=== PATIENT | female | born 1960 | race Two or more races ===

== ENCOUNTER 2018-05-30 14:43 | Inpatient (IN) | payer MEDICAID, OTHER ==
[~2018-05-30] VITALS: Ht 170.2 cm; Wt 113.8 kg
[~2018-05-30 14:43] MED LIST: CEPH-91 OR
[2018-05-30 15:28] LABS: Eosinophils # (auto) 0.1 uL; Hemoglobin 12.1 g/dL (12.2-16.2); Lymphocytes # (auto) 1.1 uL; Monocytes # (auto) 0.9 uL; Neutrophils # (auto) 5.8 uL; Nucleated Red Blood Cells % 0.1 %
[2018-05-30 15:29] LABS: Basophils # (auto) 0.1 uL; Basophils % (auto) 0.9 % (0.0-2.0); Eosinophils % (auto) 1.3 % (0.0-7.0); Lymphocytes % (auto) 13.4 % (10.0-50.0); Mean Corpuscular Hemoglobin 35.9 pg (28.0-32.0); Mean Corpuscular Hgb Conc. 32.8 g/dL (32.0-36.0); Mean Corpuscular Volume 109.5 fL (80.0-100.0); Monocytes % (auto) 11.3 % (0.0-12.0); Neutrophils % (auto) 73.1 % (37.0-80.0); Platelet Count (auto) 68 10^3/uL (140-450); Red Blood Cells 3.38 10^6/uL (4.0-5.20)
[2018-05-30 15:31] LABS: INR 1.82 (0.9-1.15); Partial Thromboplastin Time 35.8 sec (23.78-33.04); Prothrombin Time 18.8 sec (9.27-12.13)
[2018-05-30 15:37] LABS: Albumin 1.8 g/dL (3.4-5.0); BUN/Creatinine Ratio 15.8; Bilirubin, Total 9.6 mg/dL (0.2-1.0); Potassium 5.4 mmol/L (3.5-5.1); Total Protein 6.7 g/dL (6.4-8.2)
[2018-05-30 15:50] LABS: Blood Alcohol < 3.0 mg/dL (0-5); Magnesium 2.2 mg/dL (1.6-2.6)
[2018-05-30] MEDS ORDERED: THIAMINE 100mg/ml INJ (200mg/2ml VIAL) IV ONE (16:30)
[2018-05-30] MEDS ORDERED: LEVOFLOXACIN 500MG 100 ML IV ONE (16:30)
[2018-05-30] MEDS ORDERED: FOLIC ACID 1 MG in D5W 5% 50 ML IV ONE (16:30)
[2018-05-30] MEDS ORDERED: LACTULOSE 20Gm/30ML SOLN ONE (16:45)
[2018-05-30] MEDS: LACTULOSE 20Gm/30ML SOLN PO SCH ×2 (16:56→22:11)
[2018-05-30] MEDS ORDERED: PANTOPRAZOLE 40 MG/10 ML VIAL IV ONE (17:00)
[2018-05-30 18:50] LABS: Urine Bacteria NONE SEEN /hpf (None Seen); Urine Blood Negative /uL (Negative); Urine Hyaline Cast MANY /lpf (0 - 2); Urine Mucus FEW (None Seen); Urine Specific Gravity 1.029 (1.001-1.035); Urine WBC 2 /hpf (0 - 5)
[2018-05-30 21:00] VITALS: BP 119/100
[2018-05-30 22:00] VITALS: BP 119/104
[2018-05-31] VITALS (7 sets, daily range): BP systolic 113–145; BP diastolic 60–90
[2018-05-31] MEDS: LACTULOSE 20Gm/30ML SOLN PO SCH ×4 (02:10→21:17)
[2018-05-31 06:36] LABS: Lymphocytes # (auto) 0.8 uL; Monocytes # (auto) 0.7 uL; Nucleated Red Blood Cells % 0.1 %
[2018-05-31 06:39] LABS: Basophils # (auto) 0.1 uL; Basophils % (auto) 0.8 % (0.0-2.0); Eosinophils # (auto) 0.1 uL; Hematocrit 32.2 % (36.0-46.0); Lymphocytes % (auto) 12.2 % (10.0-50.0); Mean Corpuscular Hemoglobin 36.5 pg (28.0-32.0); Mean Corpuscular Volume 107.2 fL (80.0-100.0); Neutrophils # (auto) 4.9 uL; Platelet Count (auto) 65 10^3/uL (140-450); Red Blood Cells 3.01 10^6/uL (4.0-5.20); Red Cell Distribution Width 15.3 % (11.8-14.3); White Blood Cell 6.6 10^3/uL (4.4-10.8)
[2018-05-31 07:01] LABS: Albumin 1.8 g/dL (3.4-5.0); BUN/Creatinine Ratio 22.1; Bilirubin, Total 9.5 mg/dL (0.2-1.0); Calcium 8.2 mg/dL (8.5-10.1); Potassium 4.8 mmol/L (3.5-5.1); Total Protein 6.1 g/dL (6.4-8.2)
[2018-05-31] MEDS: THIAMINE 100mg/ml INJ (200mg/2ml VIAL) IV SCH (10:07)
[2018-05-31] MEDS: LEVOFLOXACIN 500MG 100 ML IV SCH (10:07)
[2018-05-31] MEDS: PANTOPRAZOLE 40 MG/10 ML VIAL IV SCH (10:07)
[2018-05-31] MEDS: FOLIC ACID 1 MG in D5W 5% 50 ML IV SCH (10:20)
[2018-05-31] MEDS: SPIRONOLACTONE 25 MG TAB PO SCH ×2 (12:00→18:03)
[2018-05-31] MEDS: FUROSEMIDE 40 MG TAB PO SCH ×2 (12:01→18:03)
[2018-05-31] MEDS: MORPHINE SULFATE 4 MG/ML SYR/VIAL IV PRN (21:17)
[2018-05-31] MEDS: FAMOTIDINE (10MG/ML) 2ML VL IV SCH (21:17)
[2018-06-01] MEDS: MORPHINE SULFATE 4 MG/ML SYR/VIAL IV PRN ×4 (02:44→21:22)
[2018-06-01 05:00] VITALS: BP 141/97
[2018-06-01] MEDS: SPIRONOLACTONE 25 MG TAB PO SCH ×2 (06:45→18:00)
[2018-06-01] MEDS: FUROSEMIDE 40 MG TAB PO SCH ×2 (06:45→18:00)
[2018-06-01 09:00] VITALS: BP_SYST 124; BP_SYST 129; BP_DIAS 63; BP_DIAS 68
[2018-06-01] MEDS ORDERED: SPIRONOLACTONE 25 MG TAB PO ONE (09:30)
[2018-06-01] MEDS: FAMOTIDINE (10MG/ML) 2ML VL IV SCH ×2 (10:00→21:21)
[2018-06-01] MEDS: PANTOPRAZOLE 40 MG/10 ML VIAL IV SCH (10:00)
[2018-06-01] MEDS: FOLIC ACID 1 MG in D5W 5% 50 ML IV SCH (10:00)
[2018-06-01] MEDS: THIAMINE 100mg/ml INJ (200mg/2ml VIAL) IV SCH (10:00)
[2018-06-01] MEDS: LACTULOSE 20Gm/30ML SOLN PO SCH ×2 (10:00→21:21)
[2018-06-01] MEDS: LEVOFLOXACIN 500MG 100 ML IV SCH (10:00)
[2018-06-01] MEDS: Ensure Enlive Strawberry 8oz Bottle PO SCH ×2 (12:00→18:01)
[2018-06-01 16:44] VITALS: BP 107/62
[2018-06-01 20:00] VITALS: BP 110/62
[2018-06-01 22:00] VITALS: BP 110/62
[2018-06-02 05:00] VITALS: BP 110/72
[2018-06-02] MEDS: FUROSEMIDE 40 MG TAB PO SCH ×2 (05:45→18:09)
[2018-06-02] MEDS: SPIRONOLACTONE 25 MG TAB PO SCH ×2 (05:46→18:09)
[2018-06-02] MEDS: MORPHINE SULFATE 4 MG/ML SYR/VIAL IV PRN ×3 (05:54→21:35)
[2018-06-02 07:36] LABS: Basophils # (auto) 0.1 uL; Eosinophils # (auto) 0.1 uL; Monocytes # (auto) 0.7 uL; Monocytes % (auto) 9.4 % (0.0-12.0); Neutrophils # (auto) 5.4 uL; Nucleated Red Blood Cells % 0.1 %; White Blood Cell 7.4 10^3/uL (4.4-10.8)
[2018-06-02 07:38] LABS: Basophils % (auto) 0.8 % (0.0-2.0); Eosinophils % (auto) 1.8 % (0.0-7.0); Hematocrit 32.2 % (36.0-46.0); Hemoglobin 10.7 g/dL (12.2-16.2); Lymphocytes # (auto) 1.1 uL; Lymphocytes % (auto) 14.9 % (10.0-50.0); Mean Corpuscular Hemoglobin 35.5 pg (28.0-32.0); Mean Corpuscular Hgb Conc. 33.3 g/dL (32.0-36.0); Mean Corpuscular Volume 106.4 fL (80.0-100.0); Neutrophils % (auto) 73.1 % (37.0-80.0); Platelet Count (auto) 57 10^3/uL (140-450); Red Blood Cells 3.03 10^6/uL (4.0-5.20)
[2018-06-02 07:51] LABS: BUN/Creatinine Ratio 21.9; Calcium 7.5 mg/dL (8.5-10.1); Potassium 4.1 mmol/L (3.5-5.1)
[2018-06-02] MEDS: Ensure Enlive Strawberry 8oz Bottle PO SCH ×3 (08:00→18:09)
[2018-06-02 08:41] VITALS: BP 120/71
[2018-06-02] MEDS: FAMOTIDINE (10MG/ML) 2ML VL IV SCH ×2 (10:00→21:35)
[2018-06-02] MEDS: THIAMINE 100mg/ml INJ (200mg/2ml VIAL) IV SCH (10:00)
[2018-06-02] MEDS: PANTOPRAZOLE 40 MG/10 ML VIAL IV SCH (10:00)
[2018-06-02] MEDS: LACTULOSE 20Gm/30ML SOLN PO SCH ×2 (10:00→21:34)
[2018-06-02] MEDS: LEVOFLOXACIN 500MG 100 ML IV SCH (10:00)
[2018-06-02] MEDS: FOLIC ACID 1 MG in D5W 5% 50 ML IV SCH (10:00)
[2018-06-02 10:36] LABS: Hepatitis A Ab IgM Negative
[2018-06-02 10:37] LABS: Hepatitis B Core IgM Negative
[2018-06-02 10:38] LABS: Hepatitis B Surface Antigen Negative (Negative)
[2018-06-02 10:40] LABS: Hepatitis C Antibody Positive (Negative)
[2018-06-02 11:53] VITALS: BP 116/76
[2018-06-02 16:24] VITALS: BP 110/76
[2018-06-02 20:00] VITALS: BP 104/65
[2018-06-02 22:00] VITALS: BP 104/65
[2018-06-03 05:00] VITALS: BP 111/63
[2018-06-03] MEDS: SPIRONOLACTONE 25 MG TAB PO SCH ×2 (05:52→18:25)
[2018-06-03] MEDS: FUROSEMIDE 40 MG TAB PO SCH ×2 (05:53→18:26)
[2018-06-03] MEDS: MORPHINE SULFATE 4 MG/ML SYR/VIAL IV PRN ×3 (06:50→18:25)
[2018-06-03] MEDS: Ensure Enlive Strawberry 8oz Bottle PO SCH ×3 (08:00→17:38)
[2018-06-03 08:08] LABS: BUN/Creatinine Ratio 22.5; Calcium 7.6 mg/dL (8.5-10.1); Potassium 3.9 mmol/L (3.5-5.1)
[2018-06-03 08:51] VITALS: BP 129/65
[2018-06-03] MEDS: FOLIC ACID 1 MG in D5W 5% 50 ML IV SCH (10:00)
[2018-06-03] MEDS: LEVOFLOXACIN 500MG 100 ML IV SCH (10:00)
[2018-06-03] MEDS: THIAMINE 100mg/ml INJ (200mg/2ml VIAL) IV SCH (10:00)
[2018-06-03] MEDS: FAMOTIDINE (10MG/ML) 2ML VL IV SCH ×2 (10:00→22:03)
[2018-06-03] MEDS: LACTULOSE 20Gm/30ML SOLN PO SCH ×2 (10:00→22:03)
[2018-06-03] MEDS: PANTOPRAZOLE 40 MG/10 ML VIAL IV SCH (10:00)
[2018-06-03 11:27] VITALS: BP 112/64
[2018-06-03 16:49] VITALS: BP 104/68
[2018-06-03] MEDS: LORazepam 0.5 MG TAB PO PRN (17:55)
[2018-06-03 20:20] LABS: BUN/Creatinine Ratio 16.7; Calcium 7.3 mg/dL (8.5-10.1); Potassium 3.8 mmol/L (3.5-5.1)
[2018-06-03 22:00] VITALS: BP 104/64
[2018-06-03] MEDS: Pro-Stat SF 30ml Vanilla PO SCH (22:00)
[2018-06-04] MEDS: MORPHINE SULFATE 4 MG/ML SYR/VIAL IV PRN ×4 (01:15→22:22)
[2018-06-04 05:00] VITALS: BP 99/43
[2018-06-04] MEDS: SPIRONOLACTONE 25 MG TAB PO SCH ×2 (06:27→18:24)
[2018-06-04] MEDS: FUROSEMIDE 40 MG TAB PO SCH ×2 (06:27→18:26)
[2018-06-04 09:00] VITALS: BP 115/78
[2018-06-04] MEDS: PANTOPRAZOLE 40 MG/10 ML VIAL IV SCH (10:00)
[2018-06-04] MEDS: LACTULOSE 20Gm/30ML SOLN PO SCH ×2 (10:00→22:21)
[2018-06-04] MEDS: THIAMINE 100mg/ml INJ (200mg/2ml VIAL) IV SCH (10:01)
[2018-06-04] MEDS: Ensure Enlive Strawberry 8oz Bottle PO SCH ×3 (10:01→18:25)
[2018-06-04] MEDS: FOLIC ACID 1 MG in D5W 5% 50 ML IV SCH (10:02)
[2018-06-04] MEDS: LEVOFLOXACIN 500MG 100 ML IV SCH (10:02)
[2018-06-04] MEDS: Pro-Stat SF 30ml Vanilla PO SCH ×2 (10:03→22:00)
[2018-06-04] MEDS: FAMOTIDINE (10MG/ML) 2ML VL IV SCH ×2 (10:20→22:22)
[2018-06-04 13:00] VITALS: BP 111/61
[2018-06-04 17:00] VITALS: BP 106/68
[2018-06-04 22:00] VITALS: BP 113/63
[2018-06-05 05:00] VITALS: BP 127/67
[2018-06-05] MEDS: SPIRONOLACTONE 25 MG TAB PO SCH ×2 (05:53→18:00)
[2018-06-05] MEDS: FUROSEMIDE 40 MG TAB PO SCH ×2 (05:53→18:00)
[2018-06-05] MEDS: MORPHINE SULFATE 4 MG/ML SYR/VIAL IV PRN ×3 (06:00→18:46)
[2018-06-05 06:59] LABS: Basophils # (auto) 0 uL; Basophils % (auto) 0.6 % (0.0-2.0); Eosinophils # (auto) 0.1 uL; Eosinophils % (auto) 1.6 % (0.0-7.0); Hematocrit 30.4 % (36.0-46.0); Hemoglobin 10.4 g/dL (12.2-16.2); Lymphocytes # (auto) 0.7 uL; Lymphocytes % (auto) 10.7 % (10.0-50.0); Mean Corpuscular Hemoglobin 36.5 pg (28.0-32.0); Mean Corpuscular Volume 107.3 fL (80.0-100.0); Monocytes # (auto) 1.1 uL; Neutrophils # (auto) 4.3 uL; Neutrophils % (auto) 70.1 % (37.0-80.0); Nucleated Red Blood Cells % 0.1 %; Platelet Count (auto) 49 10^3/uL (140-450); Potassium 3.7 mmol/L (3.5-5.1); Red Blood Cells 2.84 10^6/uL (4.0-5.20); Red Cell Distribution Width 15.7 % (11.8-14.3); White Blood Cell 6.2 10^3/uL (4.4-10.8)
[2018-06-05 07:04] LABS: Albumin 1.6 g/dL (3.4-5.0); BUN/Creatinine Ratio 17.3; Calcium 7.4 mg/dL (8.5-10.1)
[2018-06-05 07:07] LABS: Bilirubin, Total 7.4 mg/dL (0.2-1.0)
[2018-06-05 09:00] VITALS: BP 118/67
[2018-06-05] MEDS: THIAMINE 100mg/ml INJ (200mg/2ml VIAL) IV SCH (10:24)
[2018-06-05] MEDS: FOLIC ACID 1 MG in D5W 5% 50 ML IV SCH (10:24)
[2018-06-05] MEDS: FAMOTIDINE (10MG/ML) 2ML VL IV SCH ×2 (10:24→21:38)
[2018-06-05] MEDS: PANTOPRAZOLE 40 MG/10 ML VIAL IV SCH (10:24)
[2018-06-05] MEDS: LEVOFLOXACIN 500MG 100 ML IV SCH (10:24)
[2018-06-05] MEDS: LACTULOSE 20Gm/30ML SOLN PO SCH ×2 (10:24→21:39)
[2018-06-05] MEDS: Ensure Enlive Strawberry 8oz Bottle PO SCH ×3 (10:25→18:00)
[2018-06-05] MEDS: Pro-Stat SF 30ml Vanilla PO SCH ×2 (10:25→22:00)
[2018-06-05 13:35] VITALS: BP 101/75
[2018-06-05 17:33] VITALS: BP 106/69
[2018-06-05 22:00] VITALS: BP 114/64
[2018-06-06] VITALS (8 sets, daily range): BP systolic 101–115; BP diastolic 53–66
[2018-06-06] MEDS: MORPHINE SULFATE 4 MG/ML SYR/VIAL IV PRN ×4 (00:51→18:44)
[2018-06-06] MEDS: FUROSEMIDE 40 MG TAB PO SCH ×2 (06:17→17:51)
[2018-06-06] MEDS: SPIRONOLACTONE 25 MG TAB PO SCH ×2 (06:17→17:50)
[2018-06-06 06:34] LABS: Basophils # (auto) 0 uL; Basophils % (auto) 0.5 % (0.0-2.0); Eosinophils # (auto) 0.1 uL; Eosinophils % (auto) 1.9 % (0.0-7.0); Hemoglobin 10.1 g/dL (12.2-16.2); Lymphocytes # (auto) 0.8 uL; Nucleated Red Blood Cells % 0.1 %; Red Cell Distribution Width 15.7 % (11.8-14.3)
[2018-06-06 06:38] LABS: Lymphocytes % (auto) 12.1 % (10.0-50.0); Mean Corpuscular Hgb Conc. 34.8 g/dL (32.0-36.0); Mean Corpuscular Volume 106.4 fL (80.0-100.0); Monocytes % (auto) 15.2 % (0.0-12.0); Neutrophils # (auto) 4.8 uL; Neutrophils % (auto) 70.3 % (37.0-80.0); Platelet Count (auto) 45 10^3/uL (140-450); Red Blood Cells 2.73 10^6/uL (4.0-5.20); White Blood Cell 6.8 10^3/uL (4.4-10.8)
[2018-06-06 06:51] LABS: BUN/Creatinine Ratio 17.7; Calcium 7.1 mg/dL (8.5-10.1); Potassium 3.3 mmol/L (3.5-5.1)
[2018-06-06] MEDS: LACTULOSE 20Gm/30ML SOLN PO SCH ×2 (09:57→23:23)
[2018-06-06] MEDS: PANTOPRAZOLE 40 MG/10 ML VIAL IV SCH (09:57)
[2018-06-06] MEDS: THIAMINE 100mg/ml INJ (200mg/2ml VIAL) IV SCH (09:57)
[2018-06-06] MEDS: FOLIC ACID 1 MG in D5W 5% 50 ML IV SCH (09:57)
[2018-06-06] MEDS: LEVOFLOXACIN 500MG 100 ML IV SCH (09:57)
[2018-06-06] MEDS: FAMOTIDINE (10MG/ML) 2ML VL IV SCH ×2 (09:57→23:24)
[2018-06-06] MEDS: Ensure Enlive Strawberry 8oz Bottle PO SCH ×3 (09:58→17:50)
[2018-06-06] MEDS: Pro-Stat SF 30ml Vanilla PO SCH ×2 (11:55→22:08)
[2018-06-06] MEDS ORDERED: ALBUMIN 25% 100 ML IV ONE (13:00)
[2018-06-06] MEDS ORDERED: POTASSIUM CHL 20 Meq TABLET PO ONE (13:00)
[2018-06-06] MEDS: PROPRANOLOL HCL 20 MG TAB PO SCH (23:24)
[2018-06-07] MEDS: MORPHINE SULFATE 4 MG/ML SYR/VIAL IV PRN (00:47)
[2018-06-07 05:37] VITALS: BP 101/66
[2018-06-07] MEDS: FUROSEMIDE 40 MG TAB PO SCH ×2 (06:41→18:00)
[2018-06-07] MEDS: SPIRONOLACTONE 25 MG TAB PO SCH ×2 (06:42→20:17)
[2018-06-07 07:06] LABS: White Blood Cell 7.1 10^3/uL (4.4-10.8)
[2018-06-07 07:18] LABS: Hematocrit 29.5 % (36.0-46.0); Hemoglobin 10.2 g/dL (12.2-16.2); Mean Corpuscular Hemoglobin 36.8 pg (28.0-32.0); Mean Corpuscular Hgb Conc. 34.6 g/dL (32.0-36.0); Mean Corpuscular Volume 106.3 fL (80.0-100.0); Platelet Count (auto) 51 10^3/uL (140-450); Red Blood Cells 2.77 10^6/uL (4.0-5.20)
[2018-06-07 07:33] LABS: Basophils % (manual) 0 (0.0-2.0); Blast Cells 0; Metamyelocytes % 0; Myelocytes % 0; Promyelocytes % 0; Reactive Lymphocytes 0
[2018-06-07 07:40] VITALS: BP 95/58
[2018-06-07 08:53] VITALS: BP 95/58
[2018-06-07 09:13] LABS: Band Neutrophils % (manual) 1; Eosinophils % (manual) 4 (0-7); Lymphocytes % (manual) 12 (10.0-50.0); Monocytes % (manual) 12 (0-12)
[2018-06-07] MEDS: PROPRANOLOL HCL 20 MG TAB PO SCH ×2 (10:00→22:00)
[2018-06-07] MEDS: FAMOTIDINE (10MG/ML) 2ML VL IV SCH ×2 (10:39→22:23)
[2018-06-07] MEDS: LACTULOSE 20Gm/30ML SOLN PO SCH ×2 (10:40→22:23)
[2018-06-07] MEDS: PANTOPRAZOLE 40 MG/10 ML VIAL IV SCH (10:40)
[2018-06-07] MEDS: LEVOFLOXACIN 500MG 100 ML IV SCH (10:40)
[2018-06-07] MEDS: THIAMINE 100mg/ml INJ (200mg/2ml VIAL) IV SCH (10:40)
[2018-06-07] MEDS: Pro-Stat SF 30ml Vanilla PO SCH ×2 (10:41→21:59)
[2018-06-07] MEDS: Ensure Enlive Strawberry 8oz Bottle PO SCH ×3 (10:48→18:24)
[2018-06-07] MEDS: FOLIC ACID 1 MG in D5W 5% 50 ML IV SCH (11:48)
[2018-06-07 12:46] VITALS: BP 89/48
[2018-06-07 17:00] VITALS: BP 97/63
[2018-06-07] MEDS: traMADol HCL 50 MG TAB PO PRN (20:18)
[2018-06-07 22:00] VITALS: BP 99/64
[2018-06-08 05:00] VITALS: BP 99/60
[2018-06-08] MEDS: FUROSEMIDE 40 MG TAB PO SCH ×2 (06:00→18:44)
[2018-06-08] MEDS: SPIRONOLACTONE 25 MG TAB PO SCH ×2 (06:34→18:43)
[2018-06-08] MEDS: traMADol HCL 50 MG TAB PO PRN ×3 (06:35→21:12)
[2018-06-08] MEDS: Ensure Enlive Strawberry 8oz Bottle PO SCH ×3 (08:00→18:00)
[2018-06-08 09:00] VITALS: BP 95/56
[2018-06-08] MEDS: Pro-Stat SF 30ml Vanilla PO SCH ×2 (10:00→21:20)
[2018-06-08] MEDS: PROPRANOLOL HCL 20 MG TAB PO SCH ×2 (10:00→21:00)
[2018-06-08] MEDS: PANTOPRAZOLE 40 MG/10 ML VIAL IV SCH (10:50)
[2018-06-08] MEDS: LEVOFLOXACIN 500MG 100 ML IV SCH (10:50)
[2018-06-08] MEDS: THIAMINE 100mg/ml INJ (200mg/2ml VIAL) IV SCH (10:51)
[2018-06-08] MEDS: FAMOTIDINE (10MG/ML) 2ML VL IV SCH ×2 (10:51→21:00)
[2018-06-08] MEDS: LACTULOSE 20Gm/30ML SOLN PO SCH ×2 (10:51→21:00)
[2018-06-08] MEDS: FOLIC ACID 1 MG in D5W 5% 50 ML IV SCH (12:47)
[2018-06-08 13:00] VITALS: BP 95/58
[2018-06-08 17:00] VITALS: BP 91/53
[2018-06-08] MEDS: LORazepam 0.5 MG TAB PO PRN (21:20)
== END 2018-06-08 21:30 | disposition home or self-care (01) | DRG 279 ==
LOC: ER 14:43 → EDBD 14:43 → OVERFLOW 14:44 → WEST WING 20:45
PROVIDERS: ADMIT Internal Medicine; ATTEND Internal Medicine Pulmonary Disease
PROC: 0W9G3ZZ Drainage of Peritoneal Cavity, Percutaneous Approach (ICD-10-PCS; principal; 2018-06-01)
PROC: 30233R1 Transfusion of Nonautologous Platelets into Peripheral Vein, Percutaneous Approach (ICD-10-PCS; 2018-06-06)
PROC: 0W9G3ZZ Drainage of Peritoneal Cavity, Percutaneous Approach (ICD-10-PCS; 2018-06-07)
DX: K72.90 Hepatic failure, unspecified without coma (principal); N17.0 Acute kidney failure with tubular necrosis; K76.7 Hepatorenal syndrome; E43 Unspecified severe protein-calorie malnutrition; D69.6 Thrombocytopenia, unspecified; K76.6 Portal hypertension; N18.3 Chronic kidney disease, stage 3 (moderate); E87.5 Hyperkalemia; E87.70 Fluid overload, unspecified; I12.9 Hypertensive chronic kidney disease with stage 1 through stage 4 chronic kidney disease, or unspecified chronic kidney disease; K70.31 Alcoholic cirrhosis of liver with ascites; E66.9 Obesity, unspecified; Z68.39 Body mass index [BMI] 39.0-39.9, adult; Z88.2 Allergy status to sulfonamides
CPT/HCPCS: 10022; 36415; 49083; 51702; 71045; 74176; 76700; 76942; 80048; 80053; 80074; 80320; 81001; 82140; 83735; 83986; 84484; 85007; 85025; 85027; 85610; 85730; 86850; 86900; 86901; 87205; 89051; 93005; 96361; 96365; 96375; 99291; A6257; C9113; J1956; J3490; J7060; P9047

== ENCOUNTER 2018-10-15 10:10 | Inpatient (IN) | payer MEDICAID | END 2018-10-21 19:40 | disposition short-term general hospital (02) | LOC: ER 10:10 → TELE 15:46 → TELE-WESTW 22:05 | DX: K76.7 Hepatorenal syndrome (principal); N17.0 Acute kidney failure with tubular necrosis; E43 Unspecified severe protein-calorie malnutrition; D69.6 Thrombocytopenia, unspecified; I95.9 Hypotension, unspecified; K76.6 Portal hypertension; E66.01 Morbid (severe) obesity due to excess calories; E83.39 Other disorders of phosphorus metabolism; R18.8 Other ascites; E87.1 Hypo-osmolality and hyponatremia; K74.60 Unspecified cirrhosis of liver; K72.90 Hepatic failure, unspecified without coma; E87.5 Hyperkalemia; N18.3 Chronic kidney disease, stage 3 (moderate); I12.9 Hypertensive chronic kidney disease with stage 1 through stage 4 chronic kidney disease, or unspecified chronic kidney disease; N39.0 Urinary tract infection, site not specified ==